=== PATIENT | male | born 1950 | race Caucasian/White ===

== ENCOUNTER → 2016-11-24 | Outpatient (CLI) | payer MEDICARE | END | disposition home or self-care (01) | LOC: GMAH 10:48 | PROVIDERS: ATTEND Family Medicine | DX: Z12.5 Encounter for screening for malignant neoplasm of prostate (principal); E78.00 Pure hypercholesterolemia, unspecified; I10 Essential (primary) hypertension | CPT/HCPCS: 84443; 84550; G0103 ==

== ENCOUNTER → 2017-12-15 | Outpatient (CLI) | payer MEDICARE ==
--- NOTE | 2017-12-15 20:31 | MRI ---
EXAM DESCRIPTION: Shoulder,Right: MRI. CLINICAL HISTORY: PAIN IN RIGHT SHOULDER COMPARISON: None. TECHNIQUE: Multiplanar, high-field MRI, multiple sequences, without contrast: Right shoulder. FINDINGS: Fluid on the undersurface of the infraspinatus tendon, just proximal to the critical zone with intermediate signal in the distal tendon. Intermediate signal in the distal supraspinatus tendon. Minimal fluid on the anterior aspect. Minimal edema in the subacromion-subdeltoid bursa. Intermediate signal in the mid supraspinatus and infraspinatus tendons. Other rotator cuff tendons are intact. No significant muscle atrophy in the rotator cuff. Narrowing of the AC joint space. Subchondral edema in the facets with inferior marginal spurs abutting the musculotendinous junction of the supraspinatus. Type II curvature of the lateral acromion with no significant downsloping. Coracoid ligaments are intact minimal flattening of the medial coracoacromial arch. Minimal edema in the subcoracoid bursa. Mid superior origin of the long head biceps tendon from the bicipital labral anchor. Tendon within the bicipital groove. Effusion in the glenohumeral joint. Partial tear of the posterior band of the inferior glenohumeral ligament. Tear of the posterior aspect of the superior glenoid labrum. No osteochondral lesions in the glenohumeral joint. No loose bodies. IMPRESSION: 1. Tendinopathy versus partial-thickness undersurface insertion tear is of the anterior aspect of the supraspinatus tendon. The distal infraspinatus tendon. Degenerative changes also noted in both tendons. 2. 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 3. Partial tear of the posterior band of the inferior glenohumeral ligament and glenoid and humeral attachments. 4. Tear of the posterior aspect of the superior glenoid labrum posterior to the bicipital labral anchor. Electronically signed by: Abebe Cadena MD 12/15/2017 8:31 PM [facility]
== END ==
LOC: MRI 09:00
PROVIDERS: ATTEND Family Medicine
DX: S43.491A Other sprain of right shoulder joint, initial encounter (principal)

== ENCOUNTER → 2018-01-24 | Outpatient (CLI) | payer MEDICARE ==
--- NOTE | 2018-01-24 08:41 | RAD ---
EXAM DESCRIPTION: Shoulder,Right 4 Views CLINICAL HISTORY: PAIN IN RIGHT SHOULDER COMPARISON: None Available. TECHNIQUE: 4 views of the right shoulder. FINDINGS: There is adequate internal and external rotation. Alignment appears normal on transscapular Y view. No dislocation on transaxillary view. There is no fracture or dislocation. There are no significant degenerative changes observed. AC joint appears intact but narrowed. Prominent peripheral clavicle is seen. Acromiohumeral distance measures 1 cm. No focal bone lesion. IMPRESSION: Negative for fracture or dislocation. Electronically signed by: Gautam Salcido MD 01/24/2018 8:40 AM CDT
== END ==
LOC: RAD 08:12
PROVIDERS: ATTEND Orthopaedic Surgery
DX: M25.511 Pain in right shoulder (principal)

== ENCOUNTER 2018-09-09 14:40 | Observation (INO) | payer MEDICARE, OTHER ==
--- NOTE | 2018-09-09 15:27 | RAD ---
EXAM DESCRIPTION: Chest,1 View CLINICAL HISTORY: 67 years Male, SLURRED SPEECH COMPARISON: None. TECHNIQUE: AP portable chest. FINDINGS: Heart size is prominent with normal pulmonary vascularity. No consolidating infiltrate. Sternotomy wires are present. No pulmonary mass or worrisome nodule. No pneumothorax or pleural effusion. Bones are unremarkable. IMPRESSION: No acute process is identified in the chest. Electronically signed by: Gautam Salcido MD 09/09/2018 3:26 PM [facility]
--- NOTE | 2018-09-09 15:32 | CT ---
EXAM DESCRIPTION: Head CLINICAL HISTORY: SLURRED SPEECH COMPARISON: None available TECHNIQUE: Noncontrast head CT was performed with routine protocol. FINDINGS: Normal perdue-white matter differentiation. Ventricles and sulci are normal for age. No high density hemorrhage, focal edema or shift of the midline. No sulcal effacement. Normal orbital contents. Basilar cisterns appear clear. Intact calvarium with no fracture or lytic lesion. Normal aeration of tympanic cavities and mastoid air cells. No fluid levels in the paranasal sinuses. Prominent leftward nasal septal deviation. There is calcification of the intracranial internal carotid arteries. Skull base appears intact. Symmetrical internal auditory canals. IMPRESSION: No acute intracranial pathologic process. This exam was performed according to our departmental dose-optimization program, which includes automated exposure control, adjustment of the mA and/or kV according to patient size and/or use of iterative reconstruction technique. Total DLP equals 859.97 mGycm. Electronically signed by: Gautam Salcido MD 09/09/2018 3:31 PM [facility]
--- NOTE | 2018-09-09 16:04 | ED.PDOC ---
History of Present Illness - General Chief Complaint: Blood Pressure Problem Stated Complaint: elevated BP,weakness,slurred speech Time Seen by Provider: 09/09/18 14:56 Source: patient Exam Limitations: no limitations - History of Present Illness Initial Comments: PT SENT FROM PCP FOR STROKE W/U. WAS NOTED TO BE HYPERTENSIVE AND STUTTERING. PT REPORTS STARTED STUTTERING APPROXIMATELY 1230. SYMPTOMS PRESENT 2 HOURS ON PRESENTATION. C/O SOME RIGHT LEG WEAKNESS BUT IS CHRONIC AND UNCHANGED FROM PREVIOUS. Timing/Duration: 1-3 hours Severity: mild Activities at Onset: none Improving Factors: other - SPONTANEOUS Worsening Factors: nothing Allergies/Adverse Reactions: Allergies NO KNOWN ALLERGY Allergy (Verified 09/09/18 15:04) Home Medications: Ambulatory Orders Albuterol Inhaler [Ventolin Hfa Inhaler] 1 puff INH PRN 09/09/18 Atorvastatin Calcium 40 mg PO BEDTIME 09/09/18 Carvedilol 6.25 mg PO BID 09/09/18 Clopidogrel Bisulfate [Plavix] 75 mg PO QD 09/09/18 Insulin Aspart [Novolog] 100 unit SC .QID SLIDING SCALE 09/09/18 Metformin HCl 2,000 mg PO BID 09/09/18 Review of Systems - Review of Systems Constitutional: States: no symptoms reported EENTM: States: no symptoms reported Respiratory: Denies: cough, short of breath Cardiology: Denies: chest pain, palpitations Gastrointestinal/Abdominal: Denies: nausea, vomiting Genitourinary: States: no symptoms reported Musculoskeletal: States: no symptoms reported Skin: States: no symptoms reported Neurological: States: other - STUTTERING HAS RESOLVED AT THIS TIME. Denies: headache, numbness, weakness Endocrine: States: no symptoms reported Hematologic/Lymphatic: States: no symptoms reported Past Medical History (General) - Patient Medical History Hx Stroke: Yes - TIA Hx of COPD: Yes Hx Cardiac Disorders: Yes - HI's Hx Congestive Heart Failure: No Hx Hypertension: Yes Hx Diabetes: Yes Surgical History: coronary bypass surgery - Vaccination History Hx Influenza Vaccination: No Hx Pneumococcal Vaccination: Yes - Social History Hx Tobacco Use: Yes Family Medical History - Family History Father Family History: Unknown Living Status: Unknown Physical Exam - Physical Exam General Appearance: Alert, No apparent distress Eyes, Ears, Nose, Throat Exam: PERRL/EOMI, normal ENT inspection Neck: non-tender, full range of motion, supple Respiratory: lungs clear, normal breath sounds Cardiovascular/Chest: regular rate, rhythm, no murmur Gastrointestinal/Abdominal: non tender, soft, no organomegaly Extremity: normal range of motion, non-tender Neurologic: childcare administrator II-XII nml as tested, no motor/sensory deficits, alert, normal mood/affect, oriented x 3, other - SPEECH CLEAR AND FLUENT Skin Exam: normal color, warm/dry Lymphatic: no adenopathy Progress - Progress Progress: 09/09/18 17:00 PT STILL REMAINS SYMPTOM FREE. REC ADMISSION, HE AGRESS. D/W DANII SHE AGREES TO ADMIT. - EKG/XRAY/CT EKG: Sinus - RATE 92, NL AXIS, FREQUENT PAC'S, OCC PVC, , nonspecific ST T wave Chg - NAIP, NO OLD FOR COMPARISON XRAY: chest - BOARDERLINE CARDIOMEGALY, NO FAILURE, NICOLASA CT: HEAD NEG PER RADIOLOGY Departure - Departure Clinical Impression: TIA (transient ischemic attack) Hypertension Qualifiers: Hypertension type: essential hypertension Qualified Code(s): I10 - Essential ( primary) hypertension CAD (coronary artery disease) Qualifiers: Coronary Disease-Associated Artery/Lesion type: unspecified vessel or lesion type [place] vs. transplanted heart: [place] heart Associated angina: without angina Qualified Code(s): I25.10 - Atherosclerotic heart disease of [place] coronary artery without angina pectoris Time of Disposition: 17:00 Disposition: Admit Patient Condition: Fair Departure Forms: ED Discharge - Pt. Copy, Patient Portal Self Enrollment Instructions: DI for High Blood Pressure Referrals: Tj Leong MD [Primary Care Provider] - 1-2 Weeks Home Medications: Ambulatory Orders Albuterol Inhaler [Ventolin Hfa Inhaler] 1 puff INH PRN 09/09/18 Atorvastatin Calcium 40 mg PO BEDTIME 09/09/18 Carvedilol 6.25 mg PO BID 09/09/18 Clopidogrel Bisulfate [Plavix] 75 mg PO QD 09/09/18 Insulin Aspart [Novolog] 100 unit SC .QID SLIDING SCALE 09/09/18 Metformin HCl 2,000 mg PO BID 09/09/18 Decision To Admit - Decistion To Admit Decision to Admit Reason: Medical Nature Decision to Admit Date: 09/09/18 Decision to Admit Time: 17:00
--- NOTE | 2018-09-09 17:29 | HP ---
SUPERVISING PHYSICIAN: Thomas Allan M.D. CHIEF COMPLAINT: Elevated blood pressure and slurred speech with transient ischemic attack symptoms. HISTORY OF PRESENT ILLNESS: This is a 67 year-old male patient who lives in [place], [place], but he sees Dr. Leong at [facility] and Dr. Uriarte is his plate mounter in [place]. This morning he was in his usual state of health but he went to his physical therapy in [place]. He walked about 2 minutes on the treadmill. He has been doing physical therapy due to lower extremity weakness and poor circulation, and has a difficult time walking but he was walking on the treadmill. He could only do it for approximately 2 minutes and had to rest. He then proceeded to do some arm exercises but he had to rest after that also. The physical therapist took his blood pressure and it was 173/126. She wanted to call the ambulance but he refused and said he would rather come to see his doctor here in [place]. Shortly thereafter he got him his blood pressure was 128 /70. About an hour after that it was 132/76, but his daughter did notice that he had some slurred speech. He complained of some shortness of breath but there was no weakness in his extremities other than what was normal. He does need a cane to assist with walking but due to the slurred speech and his daughter thought he was slightly confused as well as elevated blood pressure, he called Dr. Leong's office. Dr. Leong's office said they were closing at noon but he should come to see the nurse practitioner at the after hours clinic. He saw Dana Fontenot NP, and due to his symptoms as well as slurred speech and history of elevated blood pressure she sent him to the Emergency Room. In the Emergency Room a CT of the head was done and it showed no acute intracranial abnormalities. A chest x-ray was done and it showed no acute process identified. His lab was done. His CBC was basically within normal limits with an ESR of 11. Chemistries showed electrolytes basically within normal limits with the exception of chloride was slightly low at 99. BUN was 25 , glucose 254. Liver enzymes were within normal limits. His slurred speech resolved while he was in the Emergency Room. All of his previous symptoms had resolved, but I was called to admit the patient for observation. PAST MEDICAL HISTORY: 1. Coronary artery disease. 2. Chronic obstructive pulmonary disease. 3. Hypertension. 4. Diabetes mellitus type 2. 5. Vertigo. 6. Benign prostatic hypertrophy. 7. Abdominal aortic aneurysm of unknown size. 8. Lower extremity peripheral neuropathy. PAST SURGICAL HISTORY: 1. Coronary artery bypass graft times 2. 2. Stents to the right femoral artery. OUTPATIENT MEDICATIONS: 1. Coreg. 2. Lipitor. 3. Glucophage. 4. Hydrochlorothiazide. 5. Meclizine. 6. Albuterol. 7. NovoLog insulin. 8. Plavix. ALLERGIES: NO KNOWN DRUG ALLERGIES. SOCIAL HISTORY: He lives in [place], [place]. He quit smoking in 2006. He drinks alcohol very rarely and denies any illicit drug use. REVIEW OF SYSTEMS: GENERAL: Negative for fatigue, fever or weight changes. HEENT: Negative for sinus symptoms, ear pain, vision changes or sore throat. RESPIRATORY: Positive for shortness of breath. Negative for coughing or wheezing. CARDIAC: Negative for chest pain, palpitations or tachycardia. GASTROINTESTINAL: Negative for nausea, vomiting, diarrhea. GENITOURINARY: Negative for hematuria, polyuria or dysuria. MUSCULOSKELETAL: Positive for bilateral lower leg weakness. Negative for arthralgias or myalgias. SKIN: Negative for lesions or rashes. NEUROLOGIC: Positive for slurred speech and mild confusion. Negative for headaches or seizures. PHYSICAL EXAMINATION: VITAL SIGNS: He is afebrile with temperature 97.5, heart rate 66, blood pressure 127/78. It has been as high as 152/82. Respiratory rate 20, O2 sat is 97% on room air. GENERAL: This is a 67 year-old male patient who is lying in his hospital bed. He is in no acute distress. HEENT: Normocephalic and atraumatic. Pupils are equal and reactive. Oropharynx is clear. NECK: Supple without mass. RESPIRATORY: Essentially clear to auscultation bilaterally. He is somewhat diminished at the bases. CHEST: There is equal rise and fall of the chest with inspiration and expiration. CARDIOVASCULAR: Regular rate and rhythm. GASTROINTESTINAL: Abdomen is soft, nondistended, non-tender. Bowel sounds are positive. EXTREMITIES: No cyanosis, clubbing or edema. NEUROLOGIC: He is awake and alert. He is oriented times three. Cranial nerves II-XII are grossly intact. SKIN: Warm and dry. LABORATORY: Labs and films are as per the History of Present Illness. ASSESSMENT: 1. Transient ischemic attack with slurred speech and bilateral lower extremity weakness that has resolved. 2. Diabetes mellitus poorly controlled. 3. Abdominal aortic aneurysm of unknown size with stent to the right femoral artery followed by Dr. Sandeep Uriarte, plate mounter in [place]. 4. Peripheral neuropathy secondary to #2 and #3. 5. Hypertension with a hypertensive episode. Currently his blood pressure is under control. 6. Coronary artery disease. 7. Chronic obstructive pulmonary disease without exacerbation. PLAN: We will place the patient in observation. I have initiated the TIA/ stroke protocol. I will continue his home medications as soon as those are verified. I started a.c. and h.s. blood sugars with sliding scale NovoLog insulin. I have also ordered a hemoglobin A1c in the morning. It is to be noted he is on no long-acting insulin and he is only on Glucophage. He previously was on Forteo but the side effects were too numerous and he stopped taking it. I will watch his blood pressures closely as well as doing his neuro checks every 4 hours. I have also given him breathing treatments with scheduled and p.r.n. nebulizer treatments. He would most likely benefit from a carotid ultrasound. Hopefully we can get one tomorrow. Will need close followup with his primary care physician, Dr. Leong, as well as his plate mounter, Dr. Uriarte. We will continue to monitor him closely and follow as needed. #[id number] [facility]
[2018-09-09] MEDS ORDERED: SODIUM CHLORIDE 0.9% (FLUSH) 10 ML SYG IV PRN (17:50)
[2018-09-09] MEDS ORDERED: ALBUTEROL SULFATE 2.5 MG/3 ML VIAL NEB PRN (17:56)
[2018-09-09] MEDS ORDERED: GLUCAGON INJ 1 MG VIAL SUBCU PRN (17:57)
[2018-09-09] MEDS ORDERED: DEXTROSE 50% 25 GM/50 ML SYG IV PRN (17:57)
[2018-09-09] MEDS ORDERED: IV SET AND CAP CHANGE INJ INJ SCH (18:00)
[2018-09-09] MEDS ORDERED: IPRATROPIUM/ALBUTEROL 3 ML VIAL INH SCH (20:00)
[2018-09-09] MEDS ORDERED: ATORVASTATIN 20 MG TAB PO ONE (20:13)
[2018-09-09] MEDS ORDERED: CARVEDILOL 3.125 MG TAB ONE (20:14)
[2018-09-09] MEDS ORDERED: metFORMIN HCL 500 MG TAB ONE (20:14)
[2018-09-09] MEDS ORDERED: METFORMIN HCL 2000 MG PO SCH (21:00)
[2018-09-09] MEDS: CLOPIDOGREL 75 MG TAB PO SCH ×2 (21:00→21:04)
[2018-09-09] MEDS ORDERED: NON-FORMULARY MEDICATION 1 EA MIS (Carvedilol [Carvedilol] 6.25 MG) PO SCH (21:00)
[2018-09-09] MEDS ORDERED: NON-FORMULARY MEDICATION 1 EA MIS (Atorvastatin Calcium [Atorvastatin Calcium] 40 MG) PO SCH (21:00)
[2018-09-09] MEDS ORDERED: ENOXAPARIN SODIUM 40 MG/0.4 ML SYG SUBCU SCH (21:00)
[2018-09-09] MEDS: SODIUM CHLORIDE 0.9% (FLUSH) 10 ML SYG IV SCH (21:01)
[2018-09-09] MEDS: INSULIN LISPRO 100 UNITS/ML PEN SUBCU SCH (21:15)
[2018-09-10] MEDS ORDERED: PANTOPRAZOLE SODIUM IV 40 MG VIAL IV SCH (06:30)
[2018-09-10] MEDS ORDERED: CARVEDILOL 3.125 MG TAB ONE (07:08)
[2018-09-10] MEDS: INSULIN LISPRO 100 UNITS/ML PEN SUBCU SCH ×2 (07:14→12:04)
[2018-09-10] MEDS: SODIUM CHLORIDE 0.9% (FLUSH) 10 ML SYG IV SCH (08:14)
[2018-09-10] MEDS: IPRATROPIUM/ALBUTEROL 3 ML VIAL NEB SCH ×2 (08:55→11:55)
[2018-09-10] MEDS ORDERED: CLOPIDOGREL 75 MG TAB PO SCH (09:00)
[2018-09-10] MEDS ORDERED: hydroCHLOROthiazide 12.5 MG CAP PO SCH (09:00)
[2018-09-10] MEDS ORDERED: CARVEDILOL 3.125 MG TAB PO SCH (09:00)
[2018-09-10] MEDS ORDERED: HYDROCHLOROTHIAZIDE 12.5 MG PO SCH (09:15)
[2018-09-10 10:09] VITALS: BP 120/74; TEMP 98.1; O2SAT 99
[2018-09-10] MEDS ORDERED: metFORMIN HCL 500 MG TAB PO SCH (17:00)
[2018-09-10] MEDS ORDERED: ATORVASTATIN 20 MG TAB PO SCH (21:00)
--- NOTE | 2018-09-15 10:20 | DS ---
SUPERVISING PHYSICIAN: Thomas Allan MD ADMISSION DIAGNOSIS: 1. Transient ischemic attack with slurred speech and bilateral lower extremity weakness that has resolved. 2. Diabetes mellitus poorly controlled. 3. Abdominal aortic aneurysm of unknown size with stent to the right femoral artery followed by Dr. Sandeep Uriarte, supervisor reclamation in [place]. 4. Peripheral neuropathy secondary to #2 and #3. 5. Hypertension with a hypertensive episode. Currently his blood pressure is under control. 6. Coronary artery disease. 7. Chronic obstructive pulmonary disease without exacerbation. DISCHARGE DIAGNOSIS: 1. Transient ischemic attack with resolution fo symptoms with the patient discharged aspirin and Plavix. 2. Diabetes mellitus, poorly controlled. 3. Abdominal aortic aneurysm with stent to the right femoral artery, followed by Dr. Sandeep Uriarte, supervisor reclamation in [place]. 4. Peripheral neuropathy, secondary to #2 and #3. 5. Hypertension with permissive hypertension during hospitalization, showing good blood pressure control at discharge. 6. Coronary artery disease. 7. Chronic obstructive pulmonary disease without exacerbation. HISTORY OF PRESENT ILLNESS: This is a 67-year-old male patient who lives in [place], [place], but he sees Dr. Leong at [facility] and Dr. Uriarte is his supervisor reclamation in [place]. This morning he was in his usual state of health but he went to his physical therapy in [place]. He walked about 2 minutes on the treadmill. He has been doing physical therapy due to lower extremity weakness and poor circulation, and has a difficult time walking, but he was walking on the treadmill. He could only do it for approximately 2 minutes and had to rest. He then proceeded to do some arm exercises but he had to rest after that also. The physical therapist took his blood pressure and it was 173/126. She wanted to call the ambulance but he refused and said he would rather come to see his doctor here in [place]. Shortly thereafter, his blood pressure was 128/70. About an hour after that, it was 132/76, but his daughter did notice that he had some slurred speech. He complained of some shortness of breath, but there was no weakness in his extremities other than what was normal. He does need a cane to assist with walking but due to the slurred speech and his daughter thought he was slightly confused as well as elevated blood pressure, he called Dr. Leong's office. Dr. Leong's office said they were closing at noon, but he should come to see the nurse practitioner at the after hours clinic. He saw Dana Lundberg NP, and due to his symptoms as well as slurred speech and history of elevated blood pressure she sent him to the Emergency Room. In the Emergency Room, a CT of the head was done and it showed no acute intracranial abnormalities. A chest x-ray was done and it showed no acute process identified. His lab was done. His CBC was basically within normal limits with an ESR of 11. Chemistries showed electrolytes basically within normal limits with the exception of chloride was slightly low at 99. BUN was 25, glucose 254. Liver enzymes were within normal limits. His slurred speech resolved while he was in the Emergency Room. All of his previous symptoms had resolved, but I was called to admit the patient for observation. LABORATORY: CBC on admission and discharge was within normal limits with white count at discharge 6,500, hemoglobin 15, hematocrit 44.4, platelet count 177, 000. Differential without any shift. ESR was normal at 11. Coagulation studies showed normal PT and PTT. Chemistries showed normal electrolytes with a slightly elevated BUN at 25. Discharge BUN 24. Electrolytes within normal limits. Blood sugars were elevated between 241 and 298. Hemoglobin A1c was 9.7. Calcium normal at 92. At discharge, magnesium was 1.9. Liver functions were all within normal limits. Triglycerides were elevated at 415. Cholesterol 139, HDL 21, LDL 56. RADIOLOGY: Chest x-ray on admission showed no acute process noted in the chest. CT of the head without contrast showed no acute intracranial processes noted. Carotid Doppler studies pending as an outpatient. Echocardiogram needs to be updated pending discharge followup. There was no current echocardiogram available at time of admission. EKG with normal sinus rhythm with PACs and occasional PVCs, heart rate 92. No acute ST or T-wave changes. HOSPITAL COURSE: Mr. Diaz was placed in observation on 09/09/18 for possible transient ischemic attack like symptoms. His symptoms actually resolved prior to admission. He was put on continuous cardiac telemetry. He had neuro checks per protocol. He had no recurrence of the symptoms. He was started on a baby aspirin and continued on all other medications prior to admission. He was found to be clinically stable enough to be discharged to followup as an outpatient. PLAN: The patient was discharged on 09/10/18 with instructions to followup with Dr. Leong in the following week. He was to return Wednesday to the hospital for carotid Doppler study with those results to be sent to Dr. Leong. He was instructed to return to the hospital should he have any return of his symptoms. Discharge diet included low cholesterol, low fat diet with ADA 1800 calorie component. Activity to increase as tolerated, but no driving or utilizing heavy motorized equipment until he was cleared by Dr. Leong or neurologist. All medications prior to discharge were resumed and that included addition of baby aspirin daily as the patient was already on Plavix prior to admission. DISCHARGE ASSESSMENT: VITAL SIGNS: Temperature 98.1. Pulse 69. Blood pressure 120/74. Respirations 18. Saturation 99% on room air. GENERAL APPEARANCE: The patient was without any notable neurologic deficits. He was alert and oriented times 3, very pleasant. CHEST: Clear to auscultation. HEART: Regular rate and rhythm. ABDOMEN: Soft, nontender. Positive bowel sounds. EXTREMITIES: No cyanosis, clubbing or edema. NEUROLOGIC: Cranial nerves II-XII are grossly intact to testing. Facial features symmetrical. Extraocular movements within normal limits. No notable nystagmus. No ataxia. Gait was normal. He was alert and oriented times 3. DISPOSITION: The patient is discharged to the care of family. DISCHARGE CONDITION: Stable and improved. #[id number] [facility]
== END 2018-09-10 13:16 | disposition home or self-care (01) ==
LOC: ER 14:40 → MS 17:29
PROVIDERS: ADMIT Nurse Practitioner Acute Care; ATTEND Nurse Practitioner Family
DX: G45.9 Transient cerebral ischemic attack, unspecified (principal); E11.65 Type 2 diabetes mellitus with hyperglycemia; E11.42 Type 2 diabetes mellitus with diabetic polyneuropathy; I71.4 Abdominal aortic aneurysm, without rupture; I10 Essential (primary) hypertension; I25.10 Atherosclerotic heart disease of native coronary artery without angina pectoris; J44.9 Chronic obstructive pulmonary disease, unspecified; N40.0 Benign prostatic hyperplasia without lower urinary tract symptoms; I25.2 Old myocardial infarction; I49.3 Ventricular premature depolarization; Z79.4 Long term (current) use of insulin; Z79.02 Long term (current) use of antithrombotics/antiplatelets; Z79.899 Other long term (current) drug therapy; Z95.1 Presence of aortocoronary bypass graft; Z95.828 Presence of other vascular implants and grafts; Z87.891 Personal history of nicotine dependence
CPT/HCPCS: 96374; 96372 ×2; J1650; J7620 ×3; J1815; 80053 ×2; 82948 ×3; 83036; 80061; 36415 ×3; 85025 ×2; 83735; 85730; 85610; 85651; 36416 ×3; 71045; 70450; 94640 ×3; 94760 ×3; 99285; 93005

== ENCOUNTER → 2018-09-12 | Outpatient (CLI) | payer MEDICARE, OTHER ==
--- NOTE | 2018-09-12 16:37 | US ---
EXAM DESCRIPTION: Carotid Duplex: ULTRASOUND. CLINICAL HISTORY: 67 years Male TIA COMPARISON: None. TECHNIQUE: Transcutaneous scanning utilizing perdue-scale and Doppler modes to evaluate the bilateral carotid systems and vertebral arteries. Percentage of diameter of stenosis or no stenosis recorded will be based upon NASCET criteria. FINDINGS: Peak systolic/end diastolic (CM-Sec) CCA Right 79/16 Left 144/17. ICA Right proximal 40/11, mid 53/13. Left proximal 47/16, mid 64/23. Vertebral Right 30/10 Left 37/11. ECA (PS Only) Right 97 left 102. ICA/CCA peak systolic ratio: Right 0.7 Left 0.4 ICA/CCA end diastolic ratio: Right 0.9 Left 1.3 Vertebral arteries: antegrade flow. Comments Comments: Bilateral atherosclerotic calcification in the common carotid bulbs. Bilateral spectral broadening in the proximal and mid ICAs. IMPRESSION: 1. Doppler evaluation of the bilateral carotid systems and vertebral arteries shows no hemodynamically significant stenoses. 2. No significant amount of plaque seen in the carotid arteries bilaterally. Bilateral vertebral arteries showed antegrade-cephalad flow. Electronically signed by: Abebe Cadena MD 09/12/2018 4:35 PM [facility]
== END ==
LOC: US 13:00
PROVIDERS: ATTEND Nurse Practitioner Family
DX: G45.9 Transient cerebral ischemic attack, unspecified (principal)

== ENCOUNTER → 2018-09-20 | Outpatient (CLI) | payer MEDICARE, OTHER | LOC: GMAH 10:21 | PROVIDERS: ATTEND Family Medicine | DX: I10 Essential (primary) hypertension (principal); Z12.5 Encounter for screening for malignant neoplasm of prostate | CPT/HCPCS: 84443; 84550; G0103 ==